=== PATIENT | male | born 1995 | race Caucasian/White ===

== ENCOUNTER 2017-08-19 11:22 | Day surgery (SDC) | payer BC, OTHER ==
[2017-08-19 12:20] VITALS: PULSE 70
--- NOTE | 2017-08-19 12:34 | PDPROPOC ---
Sedation Plan of Care Sedation Plan of Care: mental status noted, patient educated of risks, benefits , alternatives, patient can tolerate sedation ASA Classification: ASA 1 Planned drugs: fentanyl, midazolam Mallampati Score: Class 1 Mallampati Reference Image: 2 Patient passed 3-3-2 rule?: Yes
--- NOTE | 2017-08-19 12:35 | PDGENHP ---
History & Physical Chief Complaint: anal fissure History of Present Illness: non healing anal fissure Pertinent Past, Social, Family History: no tobacco, occ alcohol once every few weeks. fhx no colon cancer Relevant Physical Exam: A+Ox3. CTA. S1S2, RRR. +BS, soft nt Cardiorespiratory Assessment: class 1
[2017-08-19] MEDS ORDERED: BOTULINUM TOXIN TYPE A 100 UNIT VIAL MISC ONE (13:12)
[2017-08-19] MEDS ORDERED: MIDAZOLAM 2 MG/2 ML VIAL ONE (13:29)
[2017-08-19] MEDS ORDERED: fentaNYL 100 MCG/2 ML INJ ONE (13:30)
[2017-08-19] MEDS ORDERED: BOTULINUM TOXIN TYPE A 100 UNIT VIAL ID ONE (13:55)
--- NOTE | 2017-08-19 14:06 | GIREPORT ---
[facility] Surgical Services - Endoscopy Department Patient Name: ELAYNE PARR Procedure Date: 08/19/2017 1:46 PM Patient Type: Outpatient Attending MD/ ER Physician: Rohit Bautista Procedure: Flexible Sigmoidoscopy Indications: Anal pain, Anal fissure Providers: Rei Hurd MD Referring MD: Sera Aceves, Surgery Medicines: Fentanyl 150 micrograms IV, Midazolam 8 mg IV, None Complications: No immediate complications. Estimated blood loss: Minimal. Description of Procedure: After obtaining informed consent, the endoscope was passed under direct vision. Throughout the procedure, the patient's blood pressure, pulse, and oxygen saturations were monitored continuously. The Colonoscope was introduced through the anus and advanced to the sigmoid colon. The flex ible sigmoidoscopy was accomplished without difficulty. The patient tolerate d the procedure well. The quality of the bowel preparation was adequate. Findings: The digital rectal exam findings include anal fissure. A large amount of stool was found in the sigmoid colon, precluding visualization. The distal rectum appeared normal. Area was successfully injected with 100 units botulinum toxin. The exam was otherwise without abnormality. Estimated Blood Loss: Estimated blood loss was minimal. Post Op Diagnosis: - Anal fissure found on digital rectal exam. - Stool in the sigmoid colon. - The distal rectum is normal. Injected with botulinum toxin into anal sphincter. - The examination was otherwise normal. - No specimens collected. Recommendation: - Resume previous diet. - Continue present medications. - Discharge patient to home (ambulatory). - Return to referring physician as previously scheduled. - Return to GI clinic PRN. - Thank you for allowing me to help in your patient's care. Do not hesi smith to call with any questions. Attending Participation: I personally performed the entire procedure. Vickey Minaya M.D Rei Hurd MD 08/19/2017 2:06:01 PM This report has been signed electronicallyMathew MD Vickey Number of Addenda: 0 Note Initiated On: 08/19/2017 1:46 PM [email or web address]
[2017-08-19 14:47] VITALS: RESP 16
[2017-08-19 15:27] VITALS: BP 105/74; TEMP 98.2; O2SAT 97
== END 2017-08-19 15:26 | disposition home or self-care (01) ==
LOC: FSGY 11:22
PROVIDERS: ATTEND Internal Medicine Gastroenterology
DX: K60.1 Chronic anal fissure (principal); M62.89 Other specified disorders of muscle; K59.00 Constipation, unspecified; F32.9 Major depressive disorder, single episode, unspecified
CPT/HCPCS: J0585; J2250; J3010

== ENCOUNTER → 2018-05-09 | Outpatient (CLI) | payer BC ==
[~2018-05-09] MED LIST: GADOBUTROL 10 ML VIAL IVP ONE
== END ==
LOC: FIMAGING 15:16
PROVIDERS: ATTEND Psychiatry & Neurology Neurology
DX: R10.2 Pelvic and perineal pain (principal); R35.0 Frequency of micturition; M51.36 Other intervertebral disc degeneration, lumbar region
CPT/HCPCS: A9585